=== PATIENT | female | born 1965 | race Hispanic/Latino ===

== ENCOUNTER 2017-04-23 17:55 | Emergency (ER) | payer SELFPAY ==
[~2017-04-23] VITALS: Ht 144.8 cm; Wt 91.0 kg
[~2017-04-23 17:55] MED LIST: FLEXERIL OR; FLOMAX0.4 M1 PO; KEFLEX500 MG PO; LORTAB 10-325 M1 TAB PO; NAPROSYN500 MG PO; NAPROXEN375 MG OR; NO HOME MEDS; PERCOCET 5/325M1 TAB PO; PRILOSEC20 MG/CAP PO; ULTRAM50 M1 OR; ULTRAM50 M1 PO; ZOFRAN ODT8 MG SL
[2017-04-23] MEDS ORDERED: LISINOPRIL10 MG PO (18:16)
[2017-04-23 18:58] LABS: URINE BILIRUBIN - DIPSTICK NEGATIVE (NEGATIVE); URINE BLOOD DIPSTICK LARGE (NEGATIVE); URINE COLOR YELLOW; URINE GLUCOSE - DIPSTICK NEGATIVE (NEGATIVE); URINE KETONE NEGATIVE (NEGATIVE); URINE LEUK ESTERASE NEGATIVE (NEGATIVE); URINE NITRITE - DIPSTICK NEGATIVE (Negative); URINE PH 5.5 (4.5-8.0); URINE PROTEIN - DIPSTICK 100 mg/dL (NEG-TRACE); URINE SPECIFIC GRAVITY >=1.030; URINE UROBILINOGEN - DIPSTICK 0.2 E.U./dL (0.2)
[2017-04-23 18:59] LABS: HEMATOCRIT 41.9 % (37.0-47.0); HEMOGLOBIN 13.8 g/dl (12.0-16.0); IMMATURE GRANULOCYTES 0.5 % (0.0-1.0); MEAN CELL VOLUME 91.1 fL CALC (80.0-100.0); MEAN CORPUSCULAR HGB CONC 32.9 g/L CALC (32.0-36.0); NEUT# 10.45 thou/uL (2.00-7.15); RED BLOOD COUNT 4.6 mill/uL (4.20-5.60); RED CELL DISTRI WIDTH 13.1 % (11.5-15.5)
[2017-04-23 19:06] LABS: URINE CLARITY HAZY
[2017-04-23 19:10] LABS: ALBUMIN 4.9 g/dL (3.2-5.0); ALKALINE PHOSPHATASE 155 u/l (38-126); AMYLASE 70 u/l (30-110); ANION GAP 19 (6-22 (CALC)); BILIRUBIN, TOTAL 0.8 mg/dL (0.0-1.4); BUN 21 mg/dL (7-17); BUN/CREATININE RATIO 28 (12-20 (CALC)); CARBON DIOXIDE 25 mmol/l (22-30); CHLORIDE 105 mmol/l (95-108); CREATININE 0.8 mg/dL (0.5-1.0); GFR > 60 ML/MIN (>=60 (CALC)); GFR FOR AFR.AMER. > 60 ML/MIN (>=60 (CALC)); GLUCOSE 114 mg/dL (65-105); LIPASE 146 u/l (23-300); POTASSIUM 4.7 mmol/l (3.5-5.1); SGOT/AST 51 u/l (14-36); SGPT/ALT 68 u/l (9-52); SODIUM 144 mmol/l (137-146); TOTAL PROTEIN 8.5 g/dL (6.3-8.2)
[2017-04-23 19:15] LABS: URINE RBC 25-50 RBC/hpf (0-5); URINE SQUAMOUS EPITHELIAL CELL FEW EPI/hpf (0-FEW)
[2017-04-23] MEDS ORDERED: MOTRIN800 MG PO (20:23)
[2017-04-23] MEDS ORDERED: PERCOCET 5/325M1 TAB PO (20:23)
[2017-04-23 20:31] VITALS: BP 109/63
== END 2017-04-23 20:40 | disposition home or self-care (01) | DRG 694 ==
LOC: ED 17:55
PROVIDERS: Emergency Medicine
DX: N20.0 Calculus of kidney (principal); Z87.442 Personal history of urinary calculi

== ENCOUNTER 2017-06-14 16:17 | Emergency (ER) | payer SELFPAY ==
[~2017-06-14] VITALS: Ht 144.8 cm; Wt 95.0 kg
[~2017-06-14 16:17] MED LIST changes: +LISINOPRIL10 MG PO; +MOTRIN800 MG PO
[2017-06-14 17:19] LABS: HEMATOCRIT 41.3 % (37.0-47.0); HEMOGLOBIN 13.4 g/dl (12.0-16.0); IMMATURE GRANULOCYTES 0.3 % (0.0-1.0); MEAN CELL VOLUME 93.9 fL CALC (80.0-100.0); MEAN CORPUSCULAR HGB 30.5 pG CALC (26.0-32.0); MEAN CORPUSCULAR HGB CONC 32.4 g/L CALC (32.0-36.0); NEUT# 4.37 thou/uL (2.00-7.15); RED BLOOD COUNT 4.4 mill/uL (4.20-5.60); RED CELL DISTRI WIDTH 13.1 % (11.5-15.5)
[2017-06-14 17:20] LABS: URINE BILIRUBIN - DIPSTICK NEGATIVE (NEGATIVE); URINE BLOOD DIPSTICK MODERATE (NEGATIVE); URINE COLOR YELLOW; URINE GLUCOSE - DIPSTICK NEGATIVE (NEGATIVE); URINE KETONE NEGATIVE (NEGATIVE); URINE LEUK ESTERASE TRACE (NEGATIVE); URINE NITRITE - DIPSTICK NEGATIVE (Negative); URINE PROTEIN - DIPSTICK 100 mg/dL (NEG-TRACE); URINE SPECIFIC GRAVITY >=1.030; URINE UROBILINOGEN - DIPSTICK 0.2 E.U./dL (0.2)
[2017-06-14 17:21] LABS: URINE CLARITY HAZY
[2017-06-14 17:27] LABS: ALBUMIN 4.5 g/dL (3.2-5.0); ALKALINE PHOSPHATASE 141 u/l (38-126); ANION GAP 19 (6-22 (CALC)); BILIRUBIN, TOTAL 0.3 mg/dL (0.0-1.4); BUN 16 mg/dL (7-17); BUN/CREATININE RATIO 29 (12-20 (CALC)); CALCIUM 9.9 mg/dL (8.4-10.2); CARBON DIOXIDE 24 mmol/l (22-30); CHLORIDE 107 mmol/l (95-108); CREATININE 0.5 mg/dL (0.5-1.0); GFR > 60 ML/MIN (>=60 (CALC)); GFR FOR AFR.AMER. > 60 ML/MIN (>=60 (CALC)); GLUCOSE 92 mg/dL (65-105); LIPASE 174 u/l (23-300); POTASSIUM 4.1 mmol/l (3.5-5.1); SGOT/AST 30 u/l (14-36); SGPT/ALT 35 u/l (9-52); SODIUM 146 mmol/l (137-146); TOTAL PROTEIN 7.6 g/dL (6.3-8.2)
[2017-06-14 17:29] LABS: URINE SQUAMOUS EPITHELIAL CELL FEW EPI/hpf (0-FEW)
[2017-06-14] MEDS ORDERED: MOTRIN400 MG PO (18:31)
[2017-06-14] MEDS ORDERED: CEPHALEXIN500 M1 PO (18:31)
[2017-06-14] MEDS ORDERED: TAMSULOSIN0.4 MG PO (18:31)
[2017-06-14] MEDS ORDERED: HYDROCO/APAP1 TA9 PO (18:31)
[2017-06-14 19:40] VITALS: BP 137/72
== END 2017-06-14 19:41 | disposition home or self-care (01) | DRG 694 ==
LOC: ED 16:17
PROVIDERS: Family Medicine
DX: N20.0 Calculus of kidney (principal); R10.31 Right lower quadrant pain; Z87.442 Personal history of urinary calculi; R35.0 Frequency of micturition

== ENCOUNTER 2017-06-18 13:47 | Emergency (ER) | payer SELFPAY ==
[~2017-06-18] VITALS: Ht 144.8 cm; Wt 80.0 kg
[~2017-06-18 13:47] MED LIST changes: +CEPHALEXIN500 M1 PO; +HYDROCO/APAP1 TA9 PO; +MOTRIN400 MG PO; +TAMSULOSIN0.4 MG PO
[2017-06-18 14:20] LABS: URINE BILIRUBIN - DIPSTICK NEGATIVE (NEGATIVE); URINE BLOOD DIPSTICK LARGE (NEGATIVE); URINE COLOR YELLOW; URINE GLUCOSE - DIPSTICK NEGATIVE (NEGATIVE); URINE KETONE NEGATIVE (NEGATIVE); URINE LEUK ESTERASE NEGATIVE (NEGATIVE); URINE PROTEIN - DIPSTICK 30 mg/dL (NEG-TRACE); URINE SPECIFIC GRAVITY >=1.030; URINE UROBILINOGEN - DIPSTICK 0.2 E.U./dL (0.2)
[2017-06-18 14:22] LABS: URINE CLARITY CLEAR; URINE NITRITE - DIPSTICK NEGATIVE (Negative)
[2017-06-18 14:28] LABS: URINE BACTERIA RARE hpf; URINE EPITHELIAL CELLS RARE EPI/hpf (0-FEW); URINE WBC 0-2 WBC/hpf (0-5)
[2017-06-18] MEDS ORDERED: PERCOCET 5/325M1 TAB PO (14:41)
[2017-06-18 14:50] VITALS: BP 146/86
== END 2017-06-18 14:50 | disposition home or self-care (01) | DRG 694 ==
LOC: ED 13:47
PROVIDERS: Emergency Medicine
DX: N20.0 Calculus of kidney (principal); M54.9 Dorsalgia, unspecified; Z87.442 Personal history of urinary calculi; R10.9 Unspecified abdominal pain

== ENCOUNTER 2017-09-25 17:58 | Emergency (ER) | payer SELFPAY ==
[~2017-09-25] VITALS: Ht 144.8 cm; Wt 100.0 kg
[2017-09-25 20:28] VITALS: BP 140/89
[2017-09-25] MEDS ORDERED: ULTRAM50 M1 PO (20:36)
== END 2017-09-25 20:50 | disposition home or self-care (01) | DRG 556 ==
LOC: ED 17:58
DX: M25.511 Pain in right shoulder (principal)

== ENCOUNTER 2018-07-15 18:45 | Emergency (ER) | payer SELFPAY ==
[~2018-07-15] VITALS: Ht 144.8 cm; Wt 100.0 kg
[2018-07-15 20:24] LABS: URINE BLOOD DIPSTICK LARGE (NEGATIVE); URINE GLUCOSE - DIPSTICK NEGATIVE (NEGATIVE); URINE KETONE 15 mg/dL (NEGATIVE); URINE NITRITE - DIPSTICK NEGATIVE (Negative); URINE PROTEIN - DIPSTICK >=300 mg/dL (NEG-TRACE); URINE SPECIFIC GRAVITY 1.025; URINE UROBILINOGEN - DIPSTICK 0.2 E.U./dL (0.2)
[2018-07-15 20:26] LABS: URINE BILIRUBIN - DIPSTICK NEGATIVE (NEGATIVE); URINE COLOR AMBER; URINE LEUK ESTERASE SMALL (NEGATIVE)
[2018-07-15 20:33] LABS: URINE RBC >100 RBC/hpf (0-5); URINE SQUAMOUS EPITHELIAL CELL FEW EPI/hpf (0-FEW)
[2018-07-15 20:39] LABS: HEMATOCRIT 42.5 % (37.0-47.0); HEMOGLOBIN 13.9 g/dl (12.0-16.0); IMMATURE GRANULOCYTES 0.4 % (0.0-5.0); MEAN CELL VOLUME 91.4 fL CALC (80.0-100.0); MEAN CORPUSCULAR HGB 29.9 pG CALC (26.0-32.0); MEAN CORPUSCULAR HGB CONC 32.7 g/L CALC (32.0-36.0); NEUT# 10.68 thou/uL (2.00-7.15); RED BLOOD COUNT 4.65 mill/uL (4.20-5.60); RED CELL DISTRI WIDTH 12.7 % (11.5-15.5)
[2018-07-15 20:59] LABS: ALBUMIN 4.9 g/dL (3.2-5.0); ALKALINE PHOSPHATASE 222 u/l (38-126); ANION GAP 18 (6-22 (CALC)); BILIRUBIN, TOTAL 0.8 mg/dL (0.0-1.4); BUN 19 mg/dL (7-17); BUN/CREATININE RATIO 19 (12-20 (CALC)); CARBON DIOXIDE 26 mmol/l (22-30); CHLORIDE 101 mmol/l (95-108); GFR 58 ML/MIN (>=60 (CALC)); GFR FOR AFR.AMER. > 60 ML/MIN (>=60 (CALC)); LIPASE 126 u/l (23-300); POTASSIUM 4.2 mmol/l (3.5-5.1); SGOT/AST 51 u/l (14-36); SODIUM 141 mmol/l (137-146); TOTAL PROTEIN 8.2 g/dL (6.3-8.2)
[2018-07-15] MEDS ORDERED: ULTRAM50 M1 PO (23:09)
[2018-07-15] MEDS ORDERED: CEPHALEXIN500 M1 PO (23:09)
[2018-07-15] MEDS ORDERED: BACTRIM DS1 TAB PO (23:09)
[2018-07-15 23:26] VITALS: BP 130/78
== END 2018-07-15 23:27 | disposition home or self-care (01) | DRG 690 ==
LOC: ED 18:45
DX: N39.0 Urinary tract infection, site not specified (principal); N20.0 Calculus of kidney; Z87.442 Personal history of urinary calculi
CPT/HCPCS: Q9967

== ENCOUNTER 2018-09-05 04:23 | Emergency (ER) | payer SELFPAY ==
[~2018-09-05] VITALS: Ht 144.8 cm; Wt 100.0 kg
[~2018-09-05 04:23] MED LIST changes: +BACTRIM DS1 TAB PO
[2018-09-05] MEDS ORDERED: AMLODIPINE5 MG PO (04:37)
[2018-09-05 05:16] LABS: HEMATOCRIT 40.8 % (37.0-47.0); HEMOGLOBIN 13.3 g/dl (12.0-16.0); IMMATURE GRANULOCYTES 0.3 % (0.0-5.0); MEAN CELL VOLUME 90.7 fL CALC (80.0-100.0); MEAN CORPUSCULAR HGB 29.6 pG CALC (26.0-32.0); MEAN CORPUSCULAR HGB CONC 32.6 g/L CALC (32.0-36.0); NEUT# 5.7 thou/uL (2.00-7.15); RED BLOOD COUNT 4.5 mill/uL (4.20-5.60); RED CELL DISTRI WIDTH 12.9 % (11.5-15.5)
[2018-09-05 05:17] LABS: URINE BILIRUBIN - DIPSTICK NEGATIVE (NEGATIVE); URINE BLOOD DIPSTICK MODERATE (NEGATIVE); URINE COLOR YELLOW; URINE GLUCOSE - DIPSTICK NEGATIVE (NEGATIVE); URINE KETONE NEGATIVE (NEGATIVE); URINE LEUK ESTERASE NEGATIVE (NEGATIVE); URINE NITRITE - DIPSTICK NEGATIVE (Negative); URINE PROTEIN - DIPSTICK NEGATIVE (NEG-TRACE); URINE SPECIFIC GRAVITY <=1.005; URINE UROBILINOGEN - DIPSTICK 0.2 E.U./dL (0.2)
[2018-09-05 05:26] LABS: URINE BACTERIA FEW hpf; URINE SQUAMOUS EPITHELIAL CELL FEW EPI/hpf (0-FEW)
[2018-09-05 05:28] LABS: ALBUMIN 4.3 g/dL (3.2-5.0); ALKALINE PHOSPHATASE 142 u/l (38-126); AMYLASE 34 u/l (30-110); ANION GAP 16 (6-22 (CALC)); BILIRUBIN, TOTAL 0.5 mg/dL (0.0-1.4); BUN 17 mg/dL (7-17); BUN/CREATININE RATIO 26 (12-20 (CALC)); CARBON DIOXIDE 22 mmol/l (22-30); CHLORIDE 109 mmol/l (95-108); CREATININE 0.7 mg/dL (0.5-1.0); GFR > 60 ML/MIN (>=60 (CALC)); GFR FOR AFR.AMER. > 60 ML/MIN (>=60 (CALC)); LIPASE 132 u/l (23-300); POTASSIUM 4.2 mmol/l (3.5-5.1); SGOT/AST 29 u/l (14-36); SODIUM 143 mmol/l (137-146); TOTAL PROTEIN 7.4 g/dL (6.3-8.2)
[2018-09-05] MEDS ORDERED: LORTAB 1010 MG PO (06:40)
[2018-09-05] MEDS ORDERED: CIPROFLOXACN500 MG PO (06:40)
[2018-09-05] MEDS ORDERED: TAMSULOSIN0.4 MG PO (06:40)
[2018-09-05] MEDS ORDERED: ZOFRAN ODT4 MG PO (06:40)
[2018-09-05 06:53] VITALS: BP 153/81
== END 2018-09-05 06:54 | disposition home or self-care (01) | DRG 690 ==
LOC: ED 04:23
PROVIDERS: Emergency Medicine
DX: N13.6 Pyonephrosis (principal); Z87.442 Personal history of urinary calculi; M54.9 Dorsalgia, unspecified; R11.2 Nausea with vomiting, unspecified; R10.9 Unspecified abdominal pain

== ENCOUNTER 2018-09-23 00:32 | Emergency (ER) | payer SELFPAY ==
[~2018-09-23] VITALS: Ht 144.8 cm; Wt 100.0 kg
[~2018-09-23 00:32] MED LIST changes: +AMLODIPINE5 MG PO; +CIPROFLOXACN500 MG PO; +LORTAB 1010 MG PO; +ZOFRAN ODT4 MG PO
[2018-09-23 02:13] LABS: ALBUMIN 4.4 g/dL (3.2-5.0); ALKALINE PHOSPHATASE 168 u/l (38-126); AMYLASE 85 u/l (30-110); ANION GAP 14 (6-22 (CALC)); BILIRUBIN, TOTAL 0.7 mg/dL (0.0-1.4); BUN 19 mg/dL (7-17); BUN/CREATININE RATIO 24 (12-20 (CALC)); CARBON DIOXIDE 25 mmol/l (22-30); CHLORIDE 103 mmol/l (95-108); CREATININE 0.8 mg/dL (0.5-1.0); GFR > 60 ML/MIN (>=60 (CALC)); GFR FOR AFR.AMER. > 60 ML/MIN (>=60 (CALC)); LIPASE 178 u/l (23-300); POTASSIUM 4.1 mmol/l (3.5-5.1); SODIUM 139 mmol/l (137-146); TOTAL PROTEIN 8.1 g/dL (6.3-8.2)
[2018-09-23 02:26] LABS: SGOT/AST 82 u/l (14-36)
[2018-09-23 02:27] LABS: HEMATOCRIT 40.8 % (37.0-47.0); HEMOGLOBIN 13.3 g/dl (12.0-16.0); IMMATURE GRANULOCYTES 0.3 % (0.0-5.0); MEAN CELL VOLUME 90.3 fL CALC (80.0-100.0); MEAN CORPUSCULAR HGB 29.4 pG CALC (26.0-32.0); MEAN CORPUSCULAR HGB CONC 32.6 g/L CALC (32.0-36.0); NEUT# 9.23 thou/uL (2.00-7.15); RED BLOOD COUNT 4.52 mill/uL (4.20-5.60); RED CELL DISTRI WIDTH 12.7 % (11.5-15.5)
[2018-09-23 03:17] LABS: URINE BILIRUBIN - DIPSTICK NEGATIVE (NEGATIVE); URINE BLOOD DIPSTICK MODERATE (NEGATIVE); URINE COLOR YELLOW; URINE GLUCOSE - DIPSTICK NEGATIVE (NEGATIVE); URINE KETONE NEGATIVE (NEGATIVE); URINE LEUK ESTERASE TRACE (NEGATIVE); URINE PROTEIN - DIPSTICK TRACE mg/dL (NEG-TRACE); URINE UROBILINOGEN - DIPSTICK 0.2 E.U./dL (0.2)
[2018-09-23 03:37] LABS: URINE NITRITE - DIPSTICK POSITIVE (Negative)
[2018-09-23 03:47] LABS: URINE SQUAMOUS EPITHELIAL CELL FEW EPI/hpf (0-FEW)
[2018-09-23] MEDS ORDERED: MOTRIN800 MG PO (04:07)
[2018-09-23] MEDS ORDERED: PERCOCET 5/325M1 TAB PO (04:07)
[2018-09-23 04:34] VITALS: BP 180/83
== END 2018-09-23 04:26 | disposition home or self-care (01) | DRG 694 ==
LOC: ED 00:32
PROVIDERS: Emergency Medicine
DX: N13.2 Hydronephrosis with renal and ureteral calculous obstruction (principal); I10 Essential (primary) hypertension; Z87.442 Personal history of urinary calculi

== ENCOUNTER 2019-04-28 10:10 | Emergency (ER) | payer OTHER ==
[~2019-04-28] VITALS: Ht 144.8 cm; Wt 99.2 kg
[2019-04-28] MEDS ORDERED: NORVASC5 M1 PO (10:35)
[2019-04-28 11:30] VITALS: BP 151/89
== END 2019-04-28 11:30 | disposition home or self-care (01) | DRG 563 ==
LOC: ED 10:10
DX: S93.491A Sprain of other ligament of right ankle, initial encounter (principal)

== ENCOUNTER 2019-07-25 | Emergency (ER) | payer SELFPAY ==
[~2019-07-25] MED LIST changes: +NORVASC5 M1 PO
[2019-07-25] MEDS ORDERED: CYCLOBENZAPR5 MG PO (11:28)
== END 2019-07-25 11:47 | disposition home or self-care (01) | DRG 552 ==
DX: M62.830 Muscle spasm of back (principal); M54.6 Pain in thoracic spine; I10 Essential (primary) hypertension

== ENCOUNTER 2020-07-14 12:20 | Emergency (ER) | payer SELFPAY ==
[~2020-07-14] VITALS: Ht 144.8 cm; Wt 98.0 kg
[~2020-07-14 12:20] MED LIST changes: +CYCLOBENZAPR5 MG PO
[2020-07-14] MEDS ORDERED: ULTRAM50 M1 PO (13:33)
[2020-07-14 13:59] VITALS: BP 148/89
== END 2020-07-14 13:59 | disposition home or self-care (01) | DRG 554 ==
LOC: ED 12:20
DX: M19.011 Primary osteoarthritis, right shoulder (principal); I10 Essential (primary) hypertension

== ENCOUNTER 2021-04-23 09:51 | Emergency (ER) | payer SELFPAY ==
[~2021-04-23] VITALS: Ht 144.8 cm; Wt 38.0 kg
[2021-04-23] MEDS ORDERED: VOLTAREN1%GEL TOP (13:36)
[2021-04-23] MEDS ORDERED: MOTRIN400 MG/TAB PO (13:37)
[2021-04-23 13:40] VITALS: BP 166/74
== END 2021-04-23 13:40 | disposition home or self-care (01) | DRG 556 ==
LOC: ED 09:51
DX: M25.512 Pain in left shoulder (principal); I10 Essential (primary) hypertension; E66.9 Obesity, unspecified

== ENCOUNTER 2021-05-21 17:23 | Emergency (ER) | payer SELFPAY ==
[~2021-05-21] VITALS: Ht 144.8 cm; Wt 100.0 kg
[~2021-05-21 17:23] MED LIST changes: +MOTRIN400 MG/TAB PO; +VOLTAREN1%GEL TOP
[2021-05-21 17:49] VITALS: BP 171/87
[2021-05-21] MEDS ORDERED: CORTISPORIN OTI10 M2 AS (18:47)
== END 2021-05-21 19:14 | disposition home or self-care (01) | DRG 156 ==
LOC: ED 17:23
PROC: 09C4XZZ Extirpation of Matter from Left External Auditory Canal, External Approach (ICD-10-PCS; principal; 2021-05-21)
DX: H61.22 Impacted cerumen, left ear (principal); I10 Essential (primary) hypertension

== ENCOUNTER 2021-09-05 12:50 | Emergency (ER) | payer SELFPAY ==
[~2021-09-05] VITALS: Ht 144.8 cm; Wt 82.0 kg
[~2021-09-05 12:50] MED LIST changes: +CORTISPORIN OTI10 M2 AS
[2021-09-05 13:05] VITALS: BP 153/79
[2021-09-05] MEDS ORDERED: FLEXERIL5 M1 PO (15:14)
[2021-09-05] MEDS ORDERED: TRAMADOL HCL50 MG PO (15:14)
[2021-09-05 15:19] VITALS: BP 153/79
== END 2021-09-05 15:26 | disposition home or self-care (01) | DRG 552 ==
LOC: ED 12:50
DX: M47.22 Other spondylosis with radiculopathy, cervical region (principal); M25.512 Pain in left shoulder; I10 Essential (primary) hypertension

== ENCOUNTER 2022-04-28 16:27 | Emergency (ER) | payer SELFPAY ==
[~2022-04-28 16:27] MED LIST changes: +FLEXERIL5 M1 PO; +TRAMADOL HCL50 MG PO
== END 2022-04-28 17:53 | disposition left against medical advice (07) | DRG 951 ==
LOC: ED 16:27 → LWOBS 17:33
DX: Z53.21 Procedure and treatment not carried out due to patient leaving prior to being seen by health care provider (principal)

== ENCOUNTER 2022-06-03 11:59 | Emergency (ER) | payer SELFPAY ==
[~2022-06-03] VITALS: Ht 144.8 cm; Wt 100.0 kg
[2022-06-03] VITALS (10 sets, daily range): BP systolic 133–164; BP diastolic 79–100
[2022-06-03] MEDS ORDERED: DOXY-CAPS100 MG PO (13:59)
[2022-06-03] MEDS ORDERED: VALACYCLOVIR HCL1 GM PO (13:59)
== END 2022-06-03 14:26 | disposition home or self-care (01) | DRG 156 ==
LOC: ED 11:59
DX: B00.1 Herpesviral vesicular dermatitis (principal)

== ENCOUNTER 2022-07-17 14:51 | Emergency (ER) | payer OTHER ==
[~2022-07-17] VITALS: Ht 144.8 cm; Wt 100.0 kg
[~2022-07-17 14:51] MED LIST changes: +DOXY-CAPS100 MG PO; +VALACYCLOVIR HCL1 GM PO
[2022-07-17 19:01] VITALS: BP 165/95
[2022-07-17] MEDS ORDERED: NAPROXEN500 MG PO (19:04)
[2022-07-17] MEDS ORDERED: PREDNISONE20 MG PO (19:05)
[2022-07-17 19:15] VITALS: BP 189/104
[2022-07-17 19:17] VITALS: BP 189/104
== END 2022-07-17 19:30 | disposition home or self-care (01) | DRG 556 ==
LOC: ED 14:51
DX: M25.562 Pain in left knee (principal); R55 Syncope and collapse; W01.0XXA Fall on same level from slipping, tripping and stumbling without subsequent striking against object, initial encounter

== ENCOUNTER 2022-07-29 09:48 | Emergency (ER) | payer SELFPAY ==
[~2022-07-29] VITALS: Ht 144.8 cm; Wt 97.5 kg
[2022-07-29] VITALS (9 sets, daily range): BP systolic 126–162; BP diastolic 68–103
[~2022-07-29 09:48] MED LIST changes: +NAPROXEN500 MG PO; +PREDNISONE20 MG PO
[2022-07-29 10:42] LABS: BASO% 0.5 % (0-3); EOS% 2.3 % (0-8); HEMATOCRIT 45.7 % (37.0-47.0); HEMOGLOBIN 14.2 g/dl (12.0-16.0); IMMATURE GRANULOCYTES 0.2 % (0.0-5.0); LYMPH% 18.1 % (15-41); MEAN CELL VOLUME 92.3 fL CALC (80.0-100.0); MEAN CORPUSCULAR HGB 28.7 pG CALC (26.0-32.0); MEAN CORPUSCULAR HGB CONC 31.1 g/dL CAL (32.0-36.0); MONO% 7.4 % (2-13); NEUT# 6.22 thou/uL (2.00-7.15); NEUT% 71.5 % (42-76); RED BLOOD COUNT 4.95 mill/uL (4.20-5.60); RED CELL DISTRI WIDTH 13.4 % (11.5-15.5)
[2022-07-29 10:43] LABS: URINE BILIRUBIN - DIPSTICK NEGATIVE (NEGATIVE); URINE BLOOD DIPSTICK LARGE (NEGATIVE); URINE GLUCOSE - DIPSTICK NEGATIVE (NEGATIVE); URINE KETONE NEGATIVE (NEGATIVE); URINE LEUK ESTERASE TRACE (NEGATIVE); URINE PH 5.5 (4.5-8.0); URINE PROTEIN - DIPSTICK 30 mg/dL (NEG-TRACE); URINE SPECIFIC GRAVITY >=1.030; URINE UROBILINOGEN - DIPSTICK 0.2 E.U./dL (0.2)
[2022-07-29 10:44] LABS: URINE COLOR AMBER; URINE NITRITE - DIPSTICK NEGATIVE (Negative)
[2022-07-29 10:49] LABS: URINE RBC >100 RBC/hpf (0-5)
[2022-07-29 10:54] LABS: ALBUMIN 4.4 g/dL (3.2-5.0); ALKALINE PHOSPHATASE 130 u/l (38-126); ANION GAP 10 (6-22 (CALC)); BILIRUBIN, TOTAL 0.6 mg/dL (0.02-1.3); BUN 14 mg/dL (7-17); BUN/CREATININE RATIO 22 (12-20 (CALC)); CARBON DIOXIDE 28 mmol/l (22-30); CHLORIDE 105 mmol/l (95-108); CREATININE 0.6 mg/dL (0.5-1.0); GFR FOR AFR.AMER. > 60 ML/MIN (>=60 (CALC)); GFR OTHER RACES > 60 ML/MIN (>=60 (CALC)); SGOT/AST 29 u/l (14-36); SODIUM 139 mmol/l (137-146); TOTAL PROTEIN 7.7 g/dL (6.3-8.2)
[2022-07-29] MEDS ORDERED: ONDANSETRON4 MG PO (13:59)
[2022-07-29] MEDS ORDERED: TAMSULOSIN0.4 MG PO (13:59)
== END 2022-07-29 14:19 | disposition home or self-care (01) | DRG 694 ==
LOC: ED 09:48
PROVIDERS: Emergency Medicine
DX: N20.0 Calculus of kidney (principal); I10 Essential (primary) hypertension; Z87.442 Personal history of urinary calculi

== ENCOUNTER 2024-05-13 08:36 | Emergency (ER) | payer SELFPAY ==
[~2024-05-13] VITALS: Ht 144.8 cm; Wt 99.0 kg
[2024-05-13] VITALS (8 sets, daily range): BP systolic 114–162; BP diastolic 57–106
[~2024-05-13 08:36] MED LIST changes: +ONDANSETRON4 MG PO; +PERCOCET 5/321 COMBO PO
[2024-05-13] MEDS ORDERED: ONDANSETRON 4 MG/TAB ODT PO ONE (10:50)
[2024-05-13] MEDS ORDERED: MORPHINE SULFATE 4 MG/ML VIAL IM ONE (10:50)
[2024-05-13] MEDS ORDERED: NAPROXEN500 MG PO (10:51)
== END 2024-05-13 11:10 | disposition home or self-care (01) | DRG 556 ==
LOC: ED 08:36
DX: M25.552 Pain in left hip (principal); I10 Essential (primary) hypertension; T46.5X6A Underdosing of other antihypertensive drugs, initial encounter; Z91.148 Patient's other noncompliance with medication regimen for other reason; Z88.6 Allergy status to analgesic agent; Z87.442 Personal history of urinary calculi

== ENCOUNTER 2024-05-30 15:14 | Emergency (ER) | payer SELFPAY ==
[~2024-05-30] VITALS: Ht 144.8 cm; Wt 99.0 kg
[2024-05-30] VITALS (11 sets, daily range): BP systolic 127–161; BP diastolic 62–98
[2024-05-30] MEDS ORDERED: MORPHINE SULFATE 4 MG/ML VIAL IV ONE (17:05)
[2024-05-30] MEDS ORDERED: ONDANSETRON HCl 4 MG/2 ML SDV IV ONE (17:05)
[2024-05-30] MEDS ORDERED: SODIUM CHLORIDE 0.9% 1,000 ML IV ONE (17:10)
[2024-05-30 17:34] LABS: URINE BILIRUBIN - DIPSTICK Negative (NEGATIVE); URINE BLOOD DIPSTICK Negative (NEGATIVE); URINE GLUCOSE - DIPSTICK Negative (NEGATIVE); URINE KETONE Trace mg/dL (NEGATIVE); URINE LEUK ESTERASE Negative (NEGATIVE); URINE NITRITE - DIPSTICK Negative (Negative); URINE PROTEIN - DIPSTICK 30 mg/dL (NEG-TRACE); URINE SPECIFIC GRAVITY 1.015; URINE UROBILINOGEN - DIPSTICK 0.2 E.U./dL (0.2)
[2024-05-30 17:39] LABS: BASO% 0.3 % (0-3); EOS% 1.1 % (0-8); HEMATOCRIT 42.3 % (37.0-47.0); HEMOGLOBIN 13.5 g/dl (12.0-16.0); LYMPH% 11.9 % (15-41); MEAN CELL VOLUME 92.4 fL CALC (80.0-100.0); MEAN CORPUSCULAR HGB 29.5 pG CALC (26.0-32.0); MEAN CORPUSCULAR HGB CONC 31.9 g/dL CAL (32.0-36.0); MONO% 5.4 % (2-13); NEUT# 5.75 thou/uL (2.00-7.15); NEUT% 81.3 % (42-76); RED BLOOD COUNT 4.58 mill/uL (4.20-5.60); RED CELL DISTRI WIDTH 13.2 % (11.5-15.5)
[2024-05-30 17:47] LABS: URINE COLOR Yellow
[2024-05-30 17:51] LABS: URINE RBC 0-2 RBC/hpf (0-5); URINE SQUAMOUS EPITHELIAL CELL FEW EPI/hpf (0-FEW)
[2024-05-30 17:52] LABS: URINE MUCUS MODERATE hpf (NONE-FEW)
[2024-05-30 17:56] LABS: URINE BACTERIA RARE hpf
[2024-05-30 18:03] LABS: ALBUMIN 4.3 g/dL (3.2-5.0); CREATININE 0.6 mg/dL (0.5-1.0); POTASSIUM 3.5 mmol/l (3.5-5.1); TOTAL PROTEIN 7.3 g/dL (6.3-8.2)
[2024-05-30] MEDS ORDERED: ZOFRAN4 MG/TAB PO (19:46)
[2024-05-30] MEDS ORDERED: MACROBID100 M1 PO (19:46)
[2024-05-30] MEDS ORDERED: PROTONIX40 MG PO (19:46)
== END 2024-05-30 20:16 | disposition home or self-care (01) | DRG 392 ==
LOC: ED 15:14
PROVIDERS: Family Medicine
DX: K29.70 Gastritis, unspecified, without bleeding (principal); I10 Essential (primary) hypertension; Z87.442 Personal history of urinary calculi; Z20.822 Contact with and (suspected) exposure to COVID-19
CPT/HCPCS: J2405; Q9967